=== PATIENT | female | born 1990 | race African-American/Black ===

== ENCOUNTER 2017-02-24 14:08 | Outpatient (CLI) | payer OTHER | END 2017-02-24 14:09 | disposition home or self-care (01) | LOC: SC 14:08 | PROVIDERS: ATTEND Internal Medicine Pulmonary Disease | DX: Z53.9 Procedure and treatment not carried out, unspecified reason (principal) ==

== ENCOUNTER 2018-07-23 20:52 | Outpatient (CLI) | payer OTHER ==
--- NOTE | 2018-07-24 10:06 | Ultrasound Report ---
Reason: TEST POSITIVE Procedure Date: 07/23/2018 Accession Number: [id number] / [id number] Procedure: US - OB First Trimester CPT Code: FULL RESULT: EXAM: FIRST TRIMESTER OBSTETRIC ULTRASOUND (Less than 11 weeks) EXAM DATE: 07/23/2018 10:12 PM. CLINICAL HISTORY: test positive. LMP: 06/11/2018. COMPARISONS: None. TECHNIQUE: Transabdominal and transvaginal ultrasound examination with static image documentation. CLINICAL DATES: EGA 6 weeks 0 days with KAMERON 03/18/2019 based on LMP. ASSESSMENT: Gestational Sac: Single intrauterine. Mean gestational sac diameter: 8.9 mm = 4 weeks 6 days. Embryo: None detected. Cardiac activity: None detected. Yolk sac: 2.2 mm. Amniotic fluid: Not accurately assessed at this gestational age. Early placenta: Not visible at this gestational age. Other: No perigestational fluid collection demonstrated. MATERNAL STRUCTURES: Uterus: Anteverted. Unremarkable. Cervix: Closed. Right Ovary/Adnexa: The ovary measures 3.8 x 3.1 x 2.7 cm, volume 16.6 cc. 2 simple right ovarian cysts measuring up to 2.1 x 1.9 x 1.7 cm is noted. No concerning features are present. Left Ovary/Adnexa: The ovary measures 3.3 x 1.4 x 1.5 cm, volume 3.6 cc. Unremarkable. Free Fluid: Free fluid noted in the pelvis. Other: None. IMPRESSION: 1. Single intrauterine of uncertain viability left (given absence of fetus and cardiac activity) at EGA 4 weeks 6 days with KAMERON 03/26/2019 based on mean sac diameter, which is discordant with clinical dates. Short interval follow-up recommended. 2. No fetus identified. Normal-appearing yolk sac. Findings compatible with an early . Recommend short interval follow-up as necessary. 3. 2 simple right-sided ovarian cysts measuring 2.1 cm. No adnexal lesions. Both ovaries otherwise unremarkable. RADIA
== END 2018-07-23 20:53 | disposition home or self-care (01) ==
LOC: DI 20:52
PROVIDERS: ATTEND Nurse Practitioner Obstetrics & Gynecology
DX: Z32.01 Encounter for pregnancy test, result positive (principal); O34.81 Maternal care for other abnormalities of pelvic organs, first trimester; N83.201 Unspecified ovarian cyst, right side; Z3A.01 Less than 8 weeks gestation of pregnancy
CPT/HCPCS: 76801; 76817

== ENCOUNTER 2018-08-19 14:32 | Outpatient (CLI) | payer BC ==
--- NOTE | 2018-08-19 16:21 | Ultrasound Report ---
Reason: TEST POSITIVE Procedure Date: 08/19/2018 Accession Number: [id number] / [id number] Procedure: US - OB First Trimester CPT Code: FULL RESULT: EXAM: FIRST TRIMESTER OBSTETRIC ULTRASOUND (Less than 11 weeks) EXAM DATE: 08/19/2018 03:48 PM. CLINICAL HISTORY: TEST POSITIVE. LMP: 06/21/2018. COMPARISONS: 07/23/2018. TECHNIQUE: Transabdominal and transvaginal ultrasound examination with static image documentation. CLINICAL DATES: EGA 9 weeks 6 days with KAMERON 03/18/2019 based on LMP.. ASSESSMENT: Gestational Sac: Single intrauterine. Embryo: CRL (crown-rump length) 24.3 mm = 9 weeks 1 day. Cardiac activity: 180 beats per minute. Yolk sac: 5 mm. Amniotic fluid: Not accurately assessed at this gestational age. Early placenta: Not visible at this gestational age. Other: Small perigestational fluid collection demonstrated. MATERNAL STRUCTURES: Uterus: Anteverted. Unremarkable. Cervix: Closed. Right Ovary/Adnexa: The ovary measures 3.9 x 2.9 x 2.3 cm, volume 13.6 cc. 1.3 x 1.4 x 1.2 cm cyst Left Ovary/Adnexa: The ovary measures 3.6 x 1.7 x 2.6 cm, volume 8.3 cc. Unremarkable. Free Fluid: None. Other: None. IMPRESSION: 1. Single intrauterine at EGA 9 weeks 1 day with KAMERON 03/23/2019 based on crown-rump length, which is concordant with clinical dates. 2. Assigned dating is KAMERON 03/18/2019 based on LMP. [email or web address]
== END 2018-08-19 14:33 | disposition home or self-care (01) ==
LOC: DI 14:32
PROVIDERS: ATTEND Registered Nurse
DX: Z32.01 Encounter for pregnancy test, result positive (principal)
CPT/HCPCS: 76801

== ENCOUNTER 2018-11-02 07:36 | Outpatient (CLI) | payer BC ==
--- NOTE | 2018-11-02 13:10 | Ultrasound Report ---
Reason: ANATOMIC SURVERY Procedure Date: 11/02/2018 Accession Number: [id number] / [id number] Procedure: US - OB Detailed Eval CPT Code: FULL RESULT: EXAM: COMPLETE OBSTETRICAL ULTRASOUND EXAM DATE: 11/02/2018 07:43 AM. CLINICAL HISTORY: anatomic survey. COMPARISON: OB FIRST TRIMESTER 08/19/2018 2:59 PM. TECHNIQUE: Real-time sonographic evaluation of the fetus performed by the sensor technician. Multiple customer development representative static images were saved for review. DATING: Established EGA 20 weeks 4 days with KAMERON 03/18/2019 based on physician stated. EGA 19 weeks 6 days with KAMERON 03/23/2019 based on first ultrasound 08/19/2018. EGA 19 weeks 4 days with KAMERON 03/25/2019 based on the current ultrasound. GENERAL EVALUATION Millard . Cardiac activity: 157 bpm. movement: Visualized. Presentation: Cephalic. Placenta: Posterior position. No evidence for previa. Umbilical cord: 3 vessel cord. Central placental cord origin. Amniotic fluid: Subjectively normal with CORNELL of 12 cm. MVP 4.1 cm. BIOMETRY Bi-Parietal Diameter (BPD): 4.6 cm, 19 weeks 5 days Head Circumference (HC): 17.2 cm, 19 weeks 5 days Abdominal Circumference (AC): 15 cm, 20 weeks 1 day Femur Length (FL): 3 cm, 19 weeks 1 day Estimated Weight: 311 g, 13% percentile for 20 weeks 4 days. ANATOMY The intracranial structures, profile, face/nose/lips, spine, 4 chamber heart and outflow tracts, stomach, abdominal wall and cord insertion, diaphragm, bladder, and extremities were visualized and demonstrate no abnormality. There is symmetric mild bilateral pelvic caliectasis with AP measurement of 5 mm bilaterally, with both renal pelves measure roughly 7 mm superior to inferior. MATERNAL STRUCTURES Uterus: Unremarkable. Cervix: Long and closed. Transabdominal length 5.1 cm. Right ovary/adnexa: Not specifically imaged. Left ovary/adnexa: Not specifically imaged. Free fluid: None. IMPRESSION: 1. Millard live intrauterine with gestational age 20 weeks 4 days based on physician stated. 2. Estimated weight is within expected limits for assigned dating. Note: Today's biometry is 7 days delayed compared to assigned dating but only 2 days delayed compared to estimation by first ultrasound. 3. Mild symmetric bilateral pelvic caliectasis. Consider sonographic evaluation to assess for persistence or resolution. RADIA
== END 2018-11-02 07:37 | disposition home or self-care (01) ==
LOC: DI 07:36
PROVIDERS: ATTEND Midwife
DX: Z36.0 Encounter for antenatal screening for chromosomal anomalies (principal)
CPT/HCPCS: 76811

== ENCOUNTER 2018-11-11 08:00 | Outpatient (CLI) | payer BC ==
[2018-11-11 15:57] LABS: FERRITIN 237.9 ng/mL (11.0-306.8)
[2018-11-11 16:06] LABS: % IRON SATURATION 20 % (20-50); BASOPHILS % (AUTO) 0.3 %; EOSINOPHILS % (AUTO) 0.4 %; HGB - HEMOGLOBIN 12.1 g/dL (12.0-16.0); IRON 80 ug/dL (28-170); LYMPHOCYTES # (AUTO) 1.2 10^3/uL (1.5-3.5); MEAN CORPUSCULAR HEMOGLOBIN 33.1 pg (27.0-31.0); MEAN CORPUSCULAR HGB CONC 33.9 g/dL (32.0-36.0); MEAN CORPUSCULAR VOLUME 97.6 fL (81.0-99.0); MEAN PLATELET VOLUME 8.5 fL (7.9-10.8); MONOCYTES # (AUTO) 0.3 10^3/uL (0.0-1.0); MONOCYTES % (AUTO) 4.5 %; NEUTROPHILS # (AUTO) 4.2 10^3/uL (1.5-6.6); NEUTROPHILS % (AUTO) 73.8 %; PLT - PLATELET COUNT 237 10^3/uL (130-450); RED BLOOD COUNT 3.66 10^6/uL (4.20-5.40); RED CELL DISTRIBUTION WIDTH 12.9 % (12.0-15.0); TOTAL IRON BINDING CAPACITY 392 ug/dL (250-450); TRANSFERRIN 280 mg/dL (192-382); WHITE BLOOD COUNT 5.7 x10^3/uL (4.8-10.8)
== END 2018-11-11 23:59 | disposition home or self-care (01) ==
LOC: LAB.WCP 08:00
PROVIDERS: ATTEND Family Medicine
DX: D50.9 Iron deficiency anemia, unspecified (principal)
CPT/HCPCS: 36415; 82607; 82728; 83540; 84466; 85025

== ENCOUNTER 2019-10-19 13:16 | Outpatient (CLI) | payer BC | END 2019-10-19 13:17 | disposition home or self-care (01) | LOC: COV 13:16 | PROVIDERS: ATTEND Family Medicine | DX: R05 Cough (principal); R50.9 Fever, unspecified | CPT/HCPCS: 81599 ==

== ENCOUNTER 2020-04-14 16:20 | Outpatient (CLI) | payer BC ==
[2020-04-14 19:35] LABS: BASOPHILS % (AUTO) 0.4 %; EOSINOPHILS % (AUTO) 0.9 %; HGB - HEMOGLOBIN 12.1 g/dL (12.0-16.0); LYMPHOCYTES # (AUTO) 1.8 10^3/uL (1.5-3.5); MEAN CORPUSCULAR HEMOGLOBIN 31.5 pg (27.0-31.0); MEAN CORPUSCULAR VOLUME 98.4 fL (81.0-99.0); MEAN PLATELET VOLUME 10.2 fL (7.9-10.8); MONOCYTES # (AUTO) 0.2 10^3/uL (0.0-1.0); MONOCYTES % (AUTO) 4.8 %; NEUTROPHILS # (AUTO) 2.6 10^3/uL (1.5-6.6); NEUTROPHILS % (AUTO) 55.7 %; PLT - PLATELET COUNT 260 10^3/uL (130-450); RED BLOOD COUNT 3.84 10^6/uL (4.20-5.40); RED CELL DISTRIBUTION WIDTH 12.2 % (12.0-15.0); WHITE BLOOD COUNT 4.6 x10^3/uL (4.8-10.8)
[2020-04-14 20:07] LABS: ALBUMIN 4.4 g/dL (3.2-5.5); ALBUMIN/GLOBULIN RATIO 1.8 (1.0-2.2); BILIRUBIN,TOTAL 0.5 mg/dL (0.2-1.0); CALCIUM 9.3 mg/dL (8.5-10.3); CREATININE 0.9 mg/dL (0.4-1.0); TOTAL PROTEIN 6.8 g/dL (6.7-8.2)
[2020-04-14 20:15] LABS: FERRITIN 193.4 ng/mL (11.0-306.8)
== END 2020-04-14 23:59 | disposition home or self-care (01) ==
LOC: LAB.WCP 16:20
PROVIDERS: ATTEND Family Medicine
DX: D50.9 Iron deficiency anemia, unspecified (principal); D64.9 Anemia, unspecified
CPT/HCPCS: 36415; 80053; 81599; 82607; 82728; 83021; 83540; 84443; 84466; 85014; 85018; 85025; 85041